=== PATIENT | male | born 1975 | race Caucasian/White ===

== ENCOUNTER 2023-06-09 19:39 | Outpatient (CLI) | payer OTHER, SELFPAY ==
--- NOTE | 2023-06-19 11:38 | W.PM.SLEEP ---
Sleep Study Details Details Interpreting Provider: Thomas Nj Date of Sleep Study: 06/09/23 Sleep Study Details: STUDY TYPE:? Home unattended ? BMI:? 28.6 ORDERING PROVIDER:Errol Anna INDICATION:? Concerns about sleep apnea ? SLEEP SUMMARY:? 422 minutes monitored RESPIRATORY SUMMARY:? AHI is 5.7 Low oxygen 86 0.1% of study oxygen less than 90% Snoring 39.9% PERIODIC LIMB MOVEMENTS OF SLEEP:? Not recorded CARDIAC:? Range 47-82, mean 59.1 IMPRESSION:? Mild obstructive sleep apnea slightly worse in the supine position RECOMMENDATION: Treatment options include positional therapy, CPAP AutoSet, dental appliance and/or airway expansion surgery.
== END 2023-06-09 19:40 | disposition home or self-care (01) ==
LOC: SLEEP 19:40
PROVIDERS: PCP Family Medicine; Visit Provider Family Medicine
DX: G47.33 Obstructive sleep apnea (adult) (pediatric) (principal)
CPT/HCPCS: 95806

== ENCOUNTER 2024-01-28 07:48 | Outpatient (CLI) | payer OTHER, SELFPAY | END 2024-01-28 07:49 | disposition home or self-care (01) | LOC: NFLDREF 01-29 05:25 | PROVIDERS: PCP Family Medicine; Referring Provider Family Medicine; Visit Provider Family Medicine | DX: E78.00 Pure hypercholesterolemia, unspecified (principal) | CPT/HCPCS: 80048; 80061 ==

== ENCOUNTER 2024-03-09 09:20 | Outpatient (CLI) | payer OTHER, SELFPAY | END 2024-03-09 09:21 | disposition home or self-care (01) | LOC: NFLDREF 03-16 01:05 | PROVIDERS: PCP Family Medicine; Referring Provider Family Medicine; Visit Provider Family Medicine | DX: Z12.5 Encounter for screening for malignant neoplasm of prostate (principal) | CPT/HCPCS: G0103 ==